=== PATIENT | female | born 1995 | race Hispanic/Latino ===

== ENCOUNTER 2017-01-13 20:32 | Emergency (ER) | payer OTHER ==
[2017-01-13 20:40] VITALS: BP 131/83
--- NOTE | 2017-01-13 21:26 | ED CARDIAC/CP/PALPITATIONS ---
History of Present Illness General Chief Complaint: General Adult Stated Complaint: PT IS HAVING A PAIN IN LFT BREAST SINCE 01/11 Source: patient, family Exam Limitations: no limitations Vital Signs & Intake/Output Vital Signs & Intake/Output Vital Signs Date Time Temp Pulse Resp B/P B/P Pulse O2 O2 Flow FiO2 Mean Ox Delivery Rate 01/14 2040 98.2 90 22 131/83 97 Room Air ED Intake and Output 01/14 0000 01/13 1200 Intake Total Output Total Balance Patient 155 lb Weight Allergies Coded Allergies: NO KNOWN ALLERGIES (11/17/11) Reconcile Medications Medroxyprogesterone Acetate 150 MG/ML SYRINGE 1 ML IM Q3M CONTROL ( Reported) Nystatin 100,000 UNIT/GRAM CREAM..G. 1 MARGARITA TOP BID ARGENIS apply to affected area(s) Triage Note: PER PT L BREAST RED WARM AND SWOLLEN SINCE MONDAY, NOT VISUALIZED IN TRIAGE. PT ON DEPO SO UNSURE WHEN LAST MENSES WAS. Triage Nurses Notes Reviewed? yes : No Patient currently breastfeeds: No HPI: 21 yo F presenting with left sided chest pain, rash. Gradual onset left-sided chest/breast pain for the last 2 days, associated erythema and mild swelling of skin fold between left breast and chest wall. Patient endorses pain on skin underneath left breast, but also has left-sided chest pain that she states is "deeper in my chest", pleuritic, concerned about problems with her heart or lungs prompting presentation to the emergency department. Denies fevers, chills , cough or URI symptoms, palpitations, shortness of breath, abdominal pain, nausea, vomiting, focal neurologic symptoms, lower extremity swelling or pain, recent immobility or hospitalization, exogenous estrogens, recent . No PMH or FH of DVT/PE. (ALEXANDRE HARRIS MD) Past History Travel History Traveled to [place] past 21 day No Medical History Any Pertinent Medical History? see below for history Neurological: NONE EENT: NONE Cardiovascular: none Respiratory: NONE Gastrointestinal: NONE Hepatic: NONE Renal: NONE Musculoskeletal: NONE Psychiatric: NONE Endocrine: NONE Surgical History Surgical History: none Psychosocial History What is your primary language Bolivian Tobacco Use: Never used Family History Hx Contributory? No (KIMBERLY BERGMAN,ALEXANDRE) Review of Systems Review of Systems Constitutional: Reports: no symptoms. EENTM: Reports: no symptoms. Respiratory: Reports: no symptoms. Cardiovascular: Reports: chest pain. Denies: edema, orthopena, palpitations, peripheral edema, syncope. GI: Reports: no symptoms. Genitourinary: Reports: no symptoms. Musculoskeletal: Reports: no symptoms. Skin: Reports: dryness, erythema. Neurological/Psychological: Reports: no symptoms. Hematologic/Endocrine: Reports: no symptoms. Immunologic/Allergic: Reports: no symptoms. All Other Systems: Reviewed and Negative (ALEXANDRE HARRIS MD) Physical Exam Physical Exam General Appearance: well developed/nourished, no apparent distress, alert, awake Head: atraumatic, normal appearance Eyes: Bilateral: normal appearance. Ears, Nose, Throat: normal pharynx, normal ENT inspection Neck: normal inspection Respiratory: normal breath sounds, lungs clear Cardiovascular: regular rate/rhythm, normal peripheral pulses Gastrointestinal: normal bowel sounds, soft, non-tender Back: normal inspection, normal range of motion Comments: Pulmonary: Lungs clear to auscultation throughout Skin: Mild erythema of intertriginous fold below left breast with tenderness to palpation Extremities: Bilateral lower extremities nonedematous and nontender to palpation. Core Measures ACS in differential dx? No Severe Sepsis Present: No Septic Shock Present: No (KIMBERLY BERGMAN,ALEXANDRE) Progress Differential Diagnosis: CHF/pulm edema, musculoskeletal pain, pericarditis, pneumonia, pneumothorax, pulmonary embolism Plan of Care: Orders Procedure Date/time Status URINE 01/13 2154 Complete EKG 01/13 2122 Active Laboratory Tests 01/13/172158: Urine Test NEGATIVE Physician MDM: 21 yo F presenting with rash underneath left breast, chest pain. VSS, normal HR and room air O2 sat, cardiopulmonary exam benign as above. DDx: Argenis intertrigio, PNA, PTX, MSK pain, less likely cellulitis, low concern for ACS (given age and complete lack of risk factors), low concern for PE (Wells 0, PERC 0). EKG sinus rhythm, nonischemic. Chest x-ray without focal consolidation or airspace disease. Low concern for cardiopulmonary pathology discussed with patient, reassured, told to return to ED for worsening chest pain , shortness of breath, or new/concerning symptoms. Area of erythema under left breast consistent with Argenis, will discharge with trial of nystatin, plan for follow-up with PMD in the next 2-3 days for reevaluation. The plan of care was discussed with the patient and her parents who expressed agreement and understanding. (KIMBERLY BERGMAN,ALEXANDRE) Initial ED EKG: normal sinus rhythm (ALEXANDRE HARRIS MD) Departure Departure Disposition: HOME OR SELF CARE Condition: Stable Clinical Impression Primary Impression: Argenis infection of flexural skin Secondary Impressions: Chest pain Qualifiers: Chest pain type: unspecified Qualified Code: R07.9 - Chest pain, unspecified Referrals: RAUL HERNÁNDEZ MD (PCP/Family) Additional Instructions: Take tylenol or ibuprofen for pain. Try nystatin cream for painful irritated skin. Follow up wth your primary care physician in the next 2-3 days. Return to the ED for any new, worsening, or concerning symptoms. Departure Forms: Customer Survey General Discharge Information Prescriptions: Current Visit Scripts Nystatin 1 MARGARITA TOP BID #30 GM apply to affected area(s) (ALEXANDRE HARRIS MD) PA/ANCHOR TACK PULLER Co-Sign Statement Statement: ED Attending supervision documentation- [] I saw and evaluated the patient. I have also reviewed all the pertinent lab results and diagnostic results. I agree with the findings and the plan of care as documented in the PA's/ANCHOR TACK PULLER's documentation. [X] I have reviewed the ED Record and agree with the PA's/ANCHOR TACK PULLER's documentation. [] Additions or exceptions (if any) to the PAs/ANCHOR TACK PULLER's note and plan are summarized below: [] (NORA CHOUDHARY DO) Critical Care Note Critical Care Note Critical Care Time: non-applicable (ALEXANDRE HARRIS MD)
--- NOTE | 2017-01-13 22:53 | RADIOLOGY REPORT ---
EXAMINATION: XR CHEST CLINICAL INFORMATION: Chest pain COMPARISON: 11/13/2014 TECHNIQUE: 2 views of the chest were obtained. FINDINGS: No evidence for pneumothorax. No effusion. The heart size is within normal limits. The hilar structures do not appear enlarged. No effusion is seen. IMPRESSION: No acute process.
[2017-01-13] MEDS ORDERED: MEDROXYPRO150 MG/11 IM (22:54)
[2017-01-13] MEDS ORDERED: NYSTATIN15 G1 TOP (23:02)
== END 2017-01-13 23:08 ==
LOC: ERH 20:32
DX: B37.2 Candidiasis of skin and nail (principal); R07.89 Other chest pain
CPT/HCPCS: 81025; 93005; 93010